=== PATIENT | female | born 1935 | race Caucasian/White ===

== ENCOUNTER 2017-12-16 12:15 | Emergency (ER) | payer MEDICAID ==
[2017-12-16] MEDS: BELLADONNA/PHENOBARBITAL TAB PO (15:31)
[2017-12-16] MEDS: ONDANSETRON 4 MG INJ IV (15:31)
[2017-12-16] MEDS: SOD CHLORIDE 0.9% 500 ML IV (15:31)
[2017-12-16] MEDS: LIDOCAINE/MYLANTA 40 ML BTL PO (15:31)
[2017-12-16 15:49] LABS: ADD MAN DIFF? NO
[2017-12-16 15:51] LABS: WHITE BLOOD COUNT 7.6 10^3/ul (4.8-10.8)
[2017-12-16 15:51] LABS: BASOPHIL # 0.1 10^3/ul (0.0-0.1); BASOPHILS % 0.7 % (0.0-2.0); EOSINOPHILS % 0.1 % (0.0-7.0); HEMATOCRIT 43.4 % (37.0-47.0); HEMOGLOBIN 14.6 g/dl (12.0-16.0); LYMPHOCYTES # 1.4 10^3/ul (0.8-2.9); MEAN CORPUSCULAR HEMOGLOBIN 30.7 pg (29.0-33.0); MEAN CORPUSCULAR HGB CONC 33.6 g/dl (32.0-37.0); MEAN CORPUSCULAR VOLUME 91.4 fl (82.0-101.0); MEAN PLATELET VOLUME 9.6 fl (7.4-10.4); MONOCYTE # 0.2 10^3/ul (0.3-0.9); MONOCYTES % 2.5 % (0.0-11.0); NEUTROPHIL # 5.9 10^3/ul (1.6-7.5); NEUTROPHILS % 78.4 % (39.0-77.0); PLATELET COUNT 269 10^3/UL (140-415); RED BLOOD COUNT 4.75 10^6/ul (4.20-5.40); RED CELL DISTRIBUTION WIDTH 13.8 % (11.5-14.5)
[2017-12-16 16:11] LABS: ALANINE AMINOTRANSFERASE 35 IU/L (13-69); ALBUMIN 4.8 g/dl (3.3-4.9); ALBUMIN/GLOBULIN RATIO 1.06; ALKALINE PHOSPHATASE 121 IU/L (42-121); ANION GAP 17 (8-16); ASPARTATE AMINO TRANSFERASE 36 IU/L (15-46); BILIRUBIN,INDIRECT 0.4 mg/dl (0-1.1); BILIRUBIN,TOTAL 0.4 mg/dl (0.2-1.3); BLOOD UREA NITROGEN 13 mg/dl (7-20); CALCIUM 9.6 mg/dl (8.4-10.2); CARBON DIOXIDE 26 mmol/L (21-31); CHLORIDE 103 mmol/L (97-110); CREATININE 0.71 mg/dl (0.44-1.00); GLUCOSE 107 mg/dl (70-220); LIPASE 77 U/L (23-300); POTASSIUM 4.2 mmol/L (3.5-5.1); SODIUM 142 mmol/L (135-144); TOTAL PROTEIN 9.3 g/dl (6.1-8.1)
[2017-12-16 16:24] LABS: TROPONIN-I < 0.012 ng/ml (0.00-0.12)
[2017-12-16 16:37] LABS: ADD UMIC YES; UR ASCORBIC ACID NEGATIVE (NEGATIVE); UR BILIRUBIN (Dip) NEGATIVE (NEGATIVE); UR BLOOD (Dip) NEGATIVE (NEGATIVE); UR CLARITY CLEAR (CLEAR); UR COLOR YELLOW (YELLOW); UR GLUCOSE (Dip) NEGATIVE (NEGATIVE); UR KETONES (Dip) TRACE mg/dL (NEGATIVE); UR LEUKOCYTE ESTERASE (Dip) 2+ Leu/ul (NEGATIVE); UR NITRITE (Dip) NEGATIVE (NEGATIVE); UR RBC 2 /HPF (0-5); UR SPECIFIC GRAVITY (Dip) 1.012 (1.003-1.030); UR SQUAMOUS EPITHELIAL CELL FEW /HPF (FEW); UR TOTAL PROTEIN (Dip) NEGATIVE (NEGATIVE); UR UROBILINOGEN (Dip) NEGATIVE (NEGATIVE); UR WBC 3 /HPF (0-5)
[2017-12-16] MEDS: CEPHALEXIN 500 MG CAP PO (17:08)
== END 2017-12-16 15:20 | disposition home or self-care (01) ==
LOC: E/R 12:15
DX: N30.00 Acute cystitis without hematuria (principal)
CPT/HCPCS: 36415; 71045; 80053; 81001; 83690; 84484; 85025; 96374; 99285-25

== ENCOUNTER 2017-12-27 09:33 | Emergency (ER) | payer MEDICAID ==
[2017-12-27 20:54] LABS: ADD MAN DIFF? NO
[2017-12-27 20:59] LABS: BASOPHIL # 0.1 10^3/ul (0.0-0.1); BASOPHILS % 0.8 % (0.0-2.0); EOSINOPHILS # 0.2 10^3/ul (0.0-0.5); EOSINOPHILS % 3.2 % (0.0-7.0); HEMATOCRIT 40.9 % (37.0-47.0); HEMOGLOBIN 13.6 g/dl (12.0-16.0); LYMPHOCYTES # 2.5 10^3/ul (0.8-2.9); LYMPHOCYTES % 37.1 % (15.0-51.0); MEAN CORPUSCULAR HEMOGLOBIN 30.2 pg (29.0-33.0); MEAN CORPUSCULAR HGB CONC 33.3 g/dl (32.0-37.0); MEAN CORPUSCULAR VOLUME 90.9 fl (82.0-101.0); MEAN PLATELET VOLUME 9.4 fl (7.4-10.4); MONOCYTE # 0.6 10^3/ul (0.3-0.9); NEUTROPHIL # 3.3 10^3/ul (1.6-7.5); NEUTROPHILS % 49.6 % (39.0-77.0); PLATELET COUNT 279 10^3/UL (140-415); RED CELL DISTRIBUTION WIDTH 13.8 % (11.5-14.5)
[2017-12-27 20:59] LABS: WHITE BLOOD COUNT 6.6 10^3/ul (4.8-10.8)
[2017-12-27 21:11] LABS: ADD UMIC YES; UR ASCORBIC ACID NEGATIVE (NEGATIVE); UR BILIRUBIN (Dip) NEGATIVE (NEGATIVE); UR BLOOD (Dip) 1+ mg/dL (NEGATIVE); UR CLARITY CLEAR (CLEAR); UR COLOR YELLOW (YELLOW); UR GLUCOSE (Dip) NEGATIVE (NEGATIVE); UR KETONES (Dip) NEGATIVE (NEGATIVE); UR LEUKOCYTE ESTERASE (Dip) 2+ Leu/ul (NEGATIVE); UR NITRITE (Dip) NEGATIVE (NEGATIVE); UR RBC 2 /HPF (0-5); UR SPECIFIC GRAVITY (Dip) 1.008 (1.003-1.030); UR SQUAMOUS EPITHELIAL CELL FEW /HPF (FEW); UR TOTAL PROTEIN (Dip) NEGATIVE (NEGATIVE); UR UROBILINOGEN (Dip) NEGATIVE (NEGATIVE); UR WBC 4 /HPF (0-5)
[2017-12-27 21:20] LABS: INR 0.99; PROTIME 13.2 Sec (11.9-14.9)
[2017-12-27 21:23] LABS: ANION GAP 15 (8-16); BLOOD UREA NITROGEN 13 mg/dl (7-20); CALCIUM 9.5 mg/dl (8.4-10.2); CARBON DIOXIDE 26 mmol/L (21-31); CHLORIDE 104 mmol/L (97-110); CREATININE 0.67 mg/dl (0.44-1.00); GLUCOSE 103 mg/dl (70-220); POTASSIUM 3.8 mmol/L (3.5-5.1); SODIUM 141 mmol/L (135-144)
[2017-12-27 21:34] LABS: B-TYPE NATRIURETIC PEPTIDE 228 PG/ML (0-450); TROPONIN-I 0.012 ng/ml (0.00-0.12)
[2017-12-27] MEDS: SOD CHLORIDE 0.9% 100 ML (22:14)
[2017-12-27] MEDS: IOHEXOL 100 ML (22:15)
== END 2017-12-27 23:24 | disposition home or self-care (01) ==
LOC: E/R 09:33
DX: J20.9 Acute bronchitis, unspecified (principal); R06.02 Shortness of breath; Z87.891 Personal history of nicotine dependence
CPT/HCPCS: 36415; 71275; 80048; 81001; 83880; 84484; 85025; 85610; 85730; 99284-25

== ENCOUNTER 2018-01-05 14:52 | Inpatient (IN) | payer MEDICAID ==
[2018-01-05] MEDS: SODIUM CHLORIDE 0.9% 1L BAG IV* (15:47)
[2018-01-05] MEDS: PIPER-TAZO 3.375 GM IV (PMX) 100 ML IVPB (15:47)
[2018-01-05 16:04] LABS: ADD MAN DIFF? NO
[2018-01-05 16:08] LABS: BASOPHILS % 0.2 % (0.0-2.0); EOSINOPHILS # 0.1 10^3/ul (0.0-0.5); EOSINOPHILS % 0.6 % (0.0-7.0); HEMATOCRIT 42.9 % (37.0-47.0); HEMOGLOBIN 14.1 g/dl (12.0-16.0); LYMPHOCYTES # 2.5 10^3/ul (0.8-2.9); LYMPHOCYTES % 15.3 % (15.0-51.0); MEAN CORPUSCULAR HEMOGLOBIN 29.9 pg (29.0-33.0); MEAN CORPUSCULAR HGB CONC 32.9 g/dl (32.0-37.0); MEAN CORPUSCULAR VOLUME 91.1 fl (82.0-101.0); MONOCYTE # 1.2 10^3/ul (0.3-0.9); MONOCYTES % 7.1 % (0.0-11.0); NEUTROPHIL # 12.3 10^3/ul (1.6-7.5); PLATELET COUNT 314 10^3/UL (140-415); RED BLOOD COUNT 4.71 10^6/ul (4.20-5.40); RED CELL DISTRIBUTION WIDTH 14.4 % (11.5-14.5)
[2018-01-05 16:08] LABS: WHITE BLOOD COUNT 16.3 10^3/ul (4.8-10.8)
[2018-01-05 16:29] LABS: PARTIAL THROMBOPLASTIN TIME 28.1 Sec (25.0-35.0)
[2018-01-05 16:29] LABS: LACTIC ACID 1.4 mmol/L (0.5-2.0)
[2018-01-05 16:34] LABS: ALANINE AMINOTRANSFERASE 39 IU/L (13-69); ALBUMIN 4.1 g/dl (3.3-4.9); ALKALINE PHOSPHATASE 109 IU/L (42-121); ANION GAP 14 (8-16); ASPARTATE AMINO TRANSFERASE 27 IU/L (15-46); BILIRUBIN,INDIRECT 0.1 mg/dl (0-1.1); BILIRUBIN,TOTAL 0.1 mg/dl (0.2-1.3); BLOOD UREA NITROGEN 31 mg/dl (7-20); CALCIUM 8.8 mg/dl (8.4-10.2); CARBON DIOXIDE 27 mmol/L (21-31); CHLORIDE 101 mmol/L (97-110); CREATININE 0.78 mg/dl (0.44-1.00); GLUCOSE 123 mg/dl (70-220); POTASSIUM 3.7 mmol/L (3.5-5.1); SODIUM 138 mmol/L (135-144); TOTAL PROTEIN 7.8 g/dl (6.1-8.1)
[2018-01-05] MEDS: ONDANSETRON 4 MG INJ IV ×3 (16:49→19:58)
[2018-01-05] MEDS: morphine 4 MG/ML VIAL IV ×2 (16:49→17:33)
[2018-01-05 16:50] LABS: TROPONIN-I < 0.012 ng/ml (0.00-0.12)
[2018-01-05 16:57] LABS: INR 1.03; PROTIME 13.6 Sec (11.9-14.9); PT RATIO 1.1
[2018-01-05] MEDS ORDERED: NACL 0.9% 3 ML SYG IV (18:30)
[2018-01-05] MEDS: HYDROmorphONE 1 MG/ML SYG IV (19:59)
[2018-01-05] MEDS: DEXTROSE 5%-0.45% NACL 1,000 ML IV (19:59)
[2018-01-05 20:09] LABS: ADD UMIC YES; UR ASCORBIC ACID NEGATIVE (NEGATIVE); UR BACTERIA FEW /HPF (NONE SEEN); UR BILIRUBIN (Dip) NEGATIVE (NEGATIVE); UR BLOOD (Dip) NEGATIVE (NEGATIVE); UR CLARITY CLEAR (CLEAR); UR COLOR YELLOW (YELLOW); UR GLUCOSE (Dip) NEGATIVE (NEGATIVE); UR KETONES (Dip) NEGATIVE (NEGATIVE); UR LEUKOCYTE ESTERASE (Dip) 2+ Leu/ul (NEGATIVE); UR NITRITE (Dip) NEGATIVE (NEGATIVE); UR RBC 0 /HPF (0-5); UR SPECIFIC GRAVITY (Dip) 1.015 (1.003-1.030); UR SQUAMOUS EPITHELIAL CELL FEW /HPF (FEW); UR TOTAL PROTEIN (Dip) NEGATIVE (NEGATIVE); UR UROBILINOGEN (Dip) NEGATIVE (NEGATIVE); UR WBC 3 /HPF (0-5)
[2018-01-05 22:33] LABS: LACTIC ACID 1.3 mmol/L (0.5-2.0)
[2018-01-05 23:46] LABS: LACTIC ACID 1.6 mmol/L (0.5-2.0)
[2018-01-06 06:04] LABS: ADD MAN DIFF? NO
[2018-01-06 06:16] LABS: WHITE BLOOD COUNT 9.5 10^3/ul (4.8-10.8)
[2018-01-06 06:16] LABS: BASOPHILS % 0.2 % (0.0-2.0); EOSINOPHILS % 0.2 % (0.0-7.0); HEMATOCRIT 37.3 % (37.0-47.0); HEMOGLOBIN 12.3 g/dl (12.0-16.0); LYMPHOCYTES # 2.1 10^3/ul (0.8-2.9); LYMPHOCYTES % 22.1 % (15.0-51.0); MEAN CORPUSCULAR HEMOGLOBIN 30.1 pg (29.0-33.0); MEAN CORPUSCULAR VOLUME 91.4 fl (82.0-101.0); MEAN PLATELET VOLUME 9.7 fl (7.4-10.4); MONOCYTES % 10.6 % (0.0-11.0); NEUTROPHIL # 6.2 10^3/ul (1.6-7.5); NEUTROPHILS % 65.6 % (39.0-77.0); PLATELET COUNT 288 10^3/UL (140-415); RED BLOOD COUNT 4.08 10^6/ul (4.20-5.40); RED CELL DISTRIBUTION WIDTH 14.4 % (11.5-14.5)
[2018-01-06] MEDS: DEXTROSE 5%-0.45% NACL 1,000 ML IV ×2 (07:14→20:44)
[2018-01-06 07:24] LABS: ALANINE AMINOTRANSFERASE 31 IU/L (13-69); ALBUMIN 3.4 g/dl (3.3-4.9); ALBUMIN/GLOBULIN RATIO 1.03; ALKALINE PHOSPHATASE 70 IU/L (42-121); ANION GAP 10 (8-16); ASPARTATE AMINO TRANSFERASE 28 IU/L (15-46); BILIRUBIN,INDIRECT 0.4 mg/dl (0-1.1); BILIRUBIN,TOTAL 0.4 mg/dl (0.2-1.3); BLOOD UREA NITROGEN 21 mg/dl (7-20); CALCIUM 8.4 mg/dl (8.4-10.2); CARBON DIOXIDE 26 mmol/L (21-31); CHLORIDE 103 mmol/L (97-110); CREATININE 0.64 mg/dl (0.44-1.00); GLUCOSE 145 mg/dl (70-220); POTASSIUM 4.5 mmol/L (3.5-5.1); SODIUM 134 mmol/L (135-144); TOTAL PROTEIN 6.7 g/dl (6.1-8.1)
[2018-01-06] MEDS: morphine 2 MG INJ IV (19:05)
[2018-01-06] MEDS: ONDANSETRON 4 MG INJ IV (19:05)
[2018-01-06] MEDS ORDERED: SOD CHLORIDE 0.9% 1,000 ML IV (20:30)
[2018-01-07 05:38] LABS: ADD MAN DIFF? NO
[2018-01-07 05:47] LABS: BASOPHILS % 0.4 % (0.0-2.0); EOSINOPHILS # 0.3 10^3/ul (0.0-0.5); EOSINOPHILS % 3.4 % (0.0-7.0); HEMATOCRIT 38.5 % (37.0-47.0); HEMOGLOBIN 12.7 g/dl (12.0-16.0); LYMPHOCYTES # 2.4 10^3/ul (0.8-2.9); LYMPHOCYTES % 30.6 % (15.0-51.0); MEAN CORPUSCULAR HEMOGLOBIN 30.2 pg (29.0-33.0); MEAN CORPUSCULAR VOLUME 91.7 fl (82.0-101.0); MONOCYTE # 0.7 10^3/ul (0.3-0.9); MONOCYTES % 9.4 % (0.0-11.0); NEUTROPHIL # 4.3 10^3/ul (1.6-7.5); NEUTROPHILS % 55.3 % (39.0-77.0); PLATELET COUNT 244 10^3/UL (140-415); RED CELL DISTRIBUTION WIDTH 14.3 % (11.5-14.5)
[2018-01-07 05:47] LABS: WHITE BLOOD COUNT 7.8 10^3/ul (4.8-10.8)
[2018-01-07 06:25] LABS: ANION GAP 8 (8-16); BLOOD UREA NITROGEN 13 mg/dl (7-20); CALCIUM 8.4 mg/dl (8.4-10.2); CARBON DIOXIDE 24 mmol/L (21-31); CHLORIDE 108 mmol/L (97-110); CREATININE 0.67 mg/dl (0.44-1.00); GLUCOSE 113 mg/dl (70-220); MAGNESIUM 2.2 mg/dl (1.7-2.5); PHOSPHORUS 2.8 mg/dl (2.5-4.9); POTASSIUM 3.9 mmol/L (3.5-5.1); SODIUM 136 mmol/L (135-144)
[2018-01-09] MEDS: SOD CHLORIDE 0.9% 100 ML (11:51)
[2018-01-09] MEDS: IODIXANOL LOCM 100 ML BTL (11:51)
[2018-01-09] MEDS: ACETAMINOPHEN 325 MG TAB PO (14:05)
[2018-01-09 19:43] LABS: ADD MAN DIFF? NO
[2018-01-09 19:44] LABS: BASOPHILS % 0.3 % (0.0-2.0); EOSINOPHILS % 0.2 % (0.0-7.0); HEMATOCRIT 37.7 % (37.0-47.0); HEMOGLOBIN 12.8 g/dl (12.0-16.0); LYMPHOCYTES # 2.7 10^3/ul (0.8-2.9); LYMPHOCYTES % 21.3 % (15.0-51.0); MEAN CORPUSCULAR HEMOGLOBIN 30.2 pg (29.0-33.0); MEAN CORPUSCULAR VOLUME 88.9 fl (82.0-101.0); MEAN PLATELET VOLUME 9.3 fl (7.4-10.4); MONOCYTE # 1.1 10^3/ul (0.3-0.9); MONOCYTES % 8.8 % (0.0-11.0); NEUTROPHIL # 8.9 10^3/ul (1.6-7.5); PLATELET COUNT 246 10^3/UL (140-415); RED BLOOD COUNT 4.24 10^6/ul (4.20-5.40); RED CELL DISTRIBUTION WIDTH 13.8 % (11.5-14.5)
[2018-01-09 19:44] LABS: WHITE BLOOD COUNT 12.9 10^3/ul (4.8-10.8)
[2018-01-09 20:16] LABS: LACTIC ACID 1.8 mmol/L (0.5-2.0)
[2018-01-09 20:16] LABS: ANION GAP 12 (8-16); BLOOD UREA NITROGEN 14 mg/dl (7-20); CALCIUM 8.8 mg/dl (8.4-10.2); CARBON DIOXIDE 25 mmol/L (21-31); CHLORIDE 97 mmol/L (97-110); CREATININE 0.95 mg/dl (0.44-1.00); GLUCOSE 159 mg/dl (70-220); POTASSIUM 4.4 mmol/L (3.5-5.1); SODIUM 130 mmol/L (135-144)
[2018-01-09] MEDS: LEVETIRACETAM 500 MG (PMX) 100 ML IVPB (20:56)
[2018-01-10 08:27] LABS: ADD MAN DIFF? NO
[2018-01-10 08:37] LABS: BASOPHILS % 0.3 % (0.0-2.0); EOSINOPHILS % 0.3 % (0.0-7.0); HEMATOCRIT 36.1 % (37.0-47.0); HEMOGLOBIN 12.3 g/dl (12.0-16.0); LYMPHOCYTES # 2.4 10^3/ul (0.8-2.9); LYMPHOCYTES % 20.4 % (15.0-51.0); MEAN CORPUSCULAR HEMOGLOBIN 30.2 pg (29.0-33.0); MEAN CORPUSCULAR HGB CONC 34.1 g/dl (32.0-37.0); MEAN CORPUSCULAR VOLUME 88.7 fl (82.0-101.0); MEAN PLATELET VOLUME 9.6 fl (7.4-10.4); MONOCYTE # 1.1 10^3/ul (0.3-0.9); MONOCYTES % 9.4 % (0.0-11.0); NEUTROPHIL # 8.2 10^3/ul (1.6-7.5); NEUTROPHILS % 69.1 % (39.0-77.0); PLATELET COUNT 226 10^3/UL (140-415); RED BLOOD COUNT 4.07 10^6/ul (4.20-5.40); RED CELL DISTRIBUTION WIDTH 14.1 % (11.5-14.5)
[2018-01-10 08:37] LABS: WHITE BLOOD COUNT 11.9 10^3/ul (4.8-10.8)
[2018-01-10 08:53] LABS: ANION GAP 14 (8-16); BLOOD UREA NITROGEN 16 mg/dl (7-20); CARBON DIOXIDE 22 mmol/L (21-31); CHLORIDE 99 mmol/L (97-110); CREATININE 0.79 mg/dl (0.44-1.00); GLUCOSE 116 mg/dl (70-220); MAGNESIUM 2.2 mg/dl (1.7-2.5); PHOSPHORUS 3.5 mg/dl (2.5-4.9); POTASSIUM 4.4 mmol/L (3.5-5.1); SODIUM 131 mmol/L (135-144)
[2018-01-10] MEDS: ACETAMINOPHEN 325 MG TAB PO (09:58)
[2018-01-10] MEDS: LEVETIRACETAM 500 MG (PMX) 100 ML IVPB ×2 (15:29→20:05)
[2018-01-11] MEDS: BISACODYL 10 MG SUPP PR (01:00)
[2018-01-11] MEDS: DEXTROSE 5%-0.45% NACL 1,000 ML IV ×2 (01:00→13:03)
[2018-01-11] MEDS: ACETAMINOPHEN 650 MG SUPP PR (01:00)
[2018-01-11 09:20] LABS: ADD MAN DIFF? NO
[2018-01-11 09:25] LABS: BASOPHIL # 0.1 10^3/ul (0.0-0.1); BASOPHILS % 0.5 % (0.0-2.0); EOSINOPHILS # 0.1 10^3/ul (0.0-0.5); EOSINOPHILS % 0.5 % (0.0-7.0); HEMATOCRIT 35.6 % (37.0-47.0); HEMOGLOBIN 11.9 g/dl (12.0-16.0); LYMPHOCYTES # 2.5 10^3/ul (0.8-2.9); LYMPHOCYTES % 22.7 % (15.0-51.0); MEAN CORPUSCULAR HEMOGLOBIN 30.5 pg (29.0-33.0); MEAN CORPUSCULAR HGB CONC 33.4 g/dl (32.0-37.0); MEAN CORPUSCULAR VOLUME 91.3 fl (82.0-101.0); MEAN PLATELET VOLUME 9.8 fl (7.4-10.4); MONOCYTE # 1.2 10^3/ul (0.3-0.9); MONOCYTES % 10.8 % (0.0-11.0); NEUTROPHIL # 7.1 10^3/ul (1.6-7.5); PLATELET COUNT 218 10^3/UL (140-415); RED CELL DISTRIBUTION WIDTH 13.9 % (11.5-14.5)
[2018-01-11 09:53] LABS: ANION GAP 14 (8-16); BLOOD UREA NITROGEN 16 mg/dl (7-20); CALCIUM 8.6 mg/dl (8.4-10.2); CARBON DIOXIDE 20 mmol/L (21-31); CHLORIDE 100 mmol/L (97-110); GLUCOSE 117 mg/dl (70-220); MAGNESIUM 2.2 mg/dl (1.7-2.5); POTASSIUM 4.5 mmol/L (3.5-5.1); SODIUM 129 mmol/L (135-144)
[2018-01-11] MEDS: ACETAMINOPHEN 325 MG TAB PO ×3 (12:19→22:04)
[2018-01-11] MEDS: LEVETIRACETAM 500 MG (PMX) 100 ML IVPB ×3 (14:44→22:04)
[2018-01-11] MEDS: ATORVASTATIN 40 MG TAB PO (22:04)
[2018-01-12] MEDS: ONDANSETRON 4 MG INJ IV (02:07)
[2018-01-12] MEDS: DEXTROSE 5%-0.45% NACL 1,000 ML IV ×3 (04:59→17:30)
[2018-01-12] MEDS: ACETAMINOPHEN 325 MG TAB PO ×3 (06:46→15:42)
[2018-01-12 08:07] LABS: ADD MAN DIFF? NO
[2018-01-12 08:10] LABS: BASOPHILS % 0.4 % (0.0-2.0); EOSINOPHILS # 0.1 10^3/ul (0.0-0.5); HEMATOCRIT 34.4 % (37.0-47.0); HEMOGLOBIN 11.7 g/dl (12.0-16.0); LYMPHOCYTES # 1.2 10^3/ul (0.8-2.9); LYMPHOCYTES % 12.1 % (15.0-51.0); MEAN CORPUSCULAR HEMOGLOBIN 30.7 pg (29.0-33.0); MEAN CORPUSCULAR VOLUME 90.3 fl (82.0-101.0); MEAN PLATELET VOLUME 9.4 fl (7.4-10.4); MONOCYTE # 0.8 10^3/ul (0.3-0.9); MONOCYTES % 8.3 % (0.0-11.0); NEUTROPHIL # 7.7 10^3/ul (1.6-7.5); NEUTROPHILS % 77.7 % (39.0-77.0); PLATELET COUNT 245 10^3/UL (140-415); RED BLOOD COUNT 3.81 10^6/ul (4.20-5.40); RED CELL DISTRIBUTION WIDTH 13.6 % (11.5-14.5)
[2018-01-12 08:10] LABS: WHITE BLOOD COUNT 9.9 10^3/ul (4.8-10.8)
[2018-01-12 08:35] LABS: ANION GAP 12 (8-16); BLOOD UREA NITROGEN 11 mg/dl (7-20); CALCIUM 8.7 mg/dl (8.4-10.2); CARBON DIOXIDE 22 mmol/L (21-31); CHLORIDE 103 mmol/L (97-110); GLUCOSE 146 mg/dl (70-220); POTASSIUM 4.2 mmol/L (3.5-5.1); SODIUM 133 mmol/L (135-144)
[2018-01-12] MEDS: LEVETIRACETAM 500 MG (PMX) 100 ML IVPB ×2 (09:11→20:30)
[2018-01-12] MEDS: ATORVASTATIN 40 MG TAB PO (20:31)
[2018-01-12] MEDS: ACETAMINOPHEN 650 MG SUPP PR (23:14)
[2018-01-13] MEDS: ACETAMINOPHEN 650 MG SUPP PR ×3 (07:00→21:32)
[2018-01-13] MEDS: DEXTROSE 5%-0.45% NACL 1,000 ML IV ×2 (07:00→19:54)
[2018-01-13] MEDS: LEVETIRACETAM 500 MG (PMX) 100 ML IVPB ×2 (08:58→20:04)
[2018-01-13 09:10] LABS: ANION GAP 13 (8-16); BLOOD UREA NITROGEN 9 mg/dl (7-20); CALCIUM 8.9 mg/dl (8.4-10.2); CARBON DIOXIDE 21 mmol/L (21-31); CHLORIDE 108 mmol/L (97-110); CREATININE 0.71 mg/dl (0.44-1.00); GLUCOSE 127 mg/dl (70-220); POTASSIUM 4.3 mmol/L (3.5-5.1); SODIUM 138 mmol/L (135-144)
[2018-01-13] MEDS: ATORVASTATIN 40 MG TAB PO (20:04)
[2018-01-13] MEDS: ONDANSETRON 4 MG INJ IV (23:49)
[2018-01-14] MEDS: ACETAMINOPHEN 650 MG SUPP PR ×2 (05:04→08:04)
[2018-01-14] MEDS: LEVETIRACETAM 500 MG (PMX) 100 ML IVPB ×2 (08:04→20:26)
[2018-01-14] MEDS: DEXTROSE 5%-0.45% NACL 1,000 ML IV ×2 (08:17→20:27)
[2018-01-14] MEDS: morphine 2 MG INJ IV ×2 (11:42→15:08)
[2018-01-14] MEDS: ONDANSETRON 4 MG INJ IV (18:24)
[2018-01-14] MEDS: ATORVASTATIN 40 MG TAB PO (20:27)
[2018-01-15] MEDS: ACETAMINOPHEN 650 MG SUPP PR (02:18)
[2018-01-15] MEDS: LEVETIRACETAM 500 MG (PMX) 100 ML IVPB ×2 (08:20→20:42)
[2018-01-15] MEDS: morphine 2 MG INJ IV ×3 (10:00→23:06)
[2018-01-15] MEDS: DEXTROSE 5%-0.45% NACL 1,000 ML IV ×3 (10:00→23:10)
[2018-01-15] MEDS: BISACODYL 10 MG SUPP PR (17:54)
[2018-01-15] MEDS: ATORVASTATIN 40 MG TAB PO (20:41)
[2018-01-16] MEDS: LEVETIRACETAM 500 MG (PMX) 100 ML IVPB ×2 (08:30→20:25)
[2018-01-16] MEDS: morphine 2 MG INJ IV ×2 (08:59→20:25)
[2018-01-16] MEDS: DEXTROSE 5%-0.45% NACL 1,000 ML IV (13:08)
[2018-01-16] MEDS: ATORVASTATIN 40 MG TAB PO (21:00)
[2018-01-17] MEDS: DEXTROSE 5%-0.45% NACL 1,000 ML IV ×2 (03:05→15:42)
[2018-01-17] MEDS: morphine 2 MG INJ IV ×4 (03:05→19:47)
[2018-01-17] MEDS: ONDANSETRON 4 MG INJ IV (03:12)
[2018-01-17] MEDS: LEVETIRACETAM 500 MG (PMX) 100 ML IVPB ×2 (08:17→20:30)
[2018-01-17] MEDS: ATORVASTATIN 40 MG TAB PO (21:00)
[2018-01-18] MEDS: morphine 2 MG INJ IV ×5 (02:36→17:54)
[2018-01-18] MEDS: DEXTROSE 5%-0.45% NACL 1,000 ML IV ×2 (06:04→17:56)
[2018-01-18 08:49] LABS: ADD MAN DIFF? NO
[2018-01-18 08:52] LABS: BASOPHILS % 0.5 % (0.0-2.0); EOSINOPHILS # 0.2 10^3/ul (0.0-0.5); EOSINOPHILS % 3.6 % (0.0-7.0); HEMATOCRIT 32.3 % (37.0-47.0); HEMOGLOBIN 10.7 g/dl (12.0-16.0); LYMPHOCYTES # 1.2 10^3/ul (0.8-2.9); LYMPHOCYTES % 21.9 % (15.0-51.0); MEAN CORPUSCULAR HEMOGLOBIN 30.3 pg (29.0-33.0); MEAN CORPUSCULAR HGB CONC 33.1 g/dl (32.0-37.0); MEAN CORPUSCULAR VOLUME 91.5 fl (82.0-101.0); MEAN PLATELET VOLUME 9.1 fl (7.4-10.4); MONOCYTE # 0.5 10^3/ul (0.3-0.9); MONOCYTES % 8.4 % (0.0-11.0); NEUTROPHIL # 3.6 10^3/ul (1.6-7.5); NEUTROPHILS % 65.4 % (39.0-77.0); PLATELET COUNT 287 10^3/UL (140-415); RED BLOOD COUNT 3.53 10^6/ul (4.20-5.40); RED CELL DISTRIBUTION WIDTH 13.2 % (11.5-14.5)
[2018-01-18 08:52] LABS: WHITE BLOOD COUNT 5.5 10^3/ul (4.8-10.8)
[2018-01-18] MEDS: LEVETIRACETAM 500 MG (PMX) 100 ML IVPB ×2 (09:06→20:47)
[2018-01-18 09:35] LABS: ANION GAP 9 (8-16); BLOOD UREA NITROGEN 11 mg/dl (7-20); CARBON DIOXIDE 33 mmol/L (21-31); CHLORIDE 102 mmol/L (97-110); CREATININE 0.61 mg/dl (0.44-1.00); GLUCOSE 127 mg/dl (70-220); POTASSIUM 3.7 mmol/L (3.5-5.1); SODIUM 140 mmol/L (135-144)
[2018-01-18] MEDS: ACETAMINOPHEN 650 MG SUPP PR (14:15)
[2018-01-18] MEDS: METHYLPREDNISOLONE 40 MG INJ IV (17:53)
[2018-01-18] MEDS: ATORVASTATIN 40 MG TAB PO (20:51)
[2018-01-19] MEDS: METHYLPREDNISOLONE 40 MG INJ IV ×3 (00:24→13:13)
[2018-01-19] MEDS: morphine 2 MG INJ IV ×4 (06:19→16:52)
[2018-01-19] MEDS: DEXTROSE 5%-0.45% NACL 1,000 ML IV ×2 (09:52→12:32)
[2018-01-19] MEDS: LEVETIRACETAM 500 MG (PMX) 100 ML IVPB ×2 (09:52→20:26)
[2018-01-19] MEDS: ONDANSETRON 4 MG INJ IV (10:22)
[2018-01-19] MEDS: ACETAMINOPHEN 650 MG SUPP PR (13:14)
[2018-01-19] MEDS: ATORVASTATIN 40 MG TAB PO (20:26)
[2018-01-20] MEDS: morphine 2 MG INJ IV ×4 (06:02→16:56)
[2018-01-20] MEDS: LEVETIRACETAM 500 MG (PMX) 100 ML IVPB ×2 (08:58→21:00)
[2018-01-20] MEDS: DEXTROSE 5%-0.45% NACL 1,000 ML IV (12:02)
[2018-01-20] MEDS ORDERED: DEXAMETHASONE 4 MG TAB PO (20:00)
[2018-01-20] MEDS: DEXAMETHASONE 4 MG TAB PO (20:00)
[2018-01-20] MEDS: ATORVASTATIN 40 MG TAB PO (21:00)
[2018-01-20] MEDS ORDERED: LEVETIRACETAM 500 MG TAB PO (21:00)
[2018-01-20] MEDS: ACETAMINOPHEN 650 MG SUPP PR (21:57)
[2018-01-21] MEDS: morphine 2 MG INJ IV (04:24)
[2018-01-21] MEDS: DEXAMETHASONE 4 MG TAB PO (06:00)
[2018-01-21 07:46] LABS: ANION GAP 14 (8-16); BLOOD UREA NITROGEN 24 mg/dl (7-20); CALCIUM 9.3 mg/dl (8.4-10.2); CARBON DIOXIDE 31 mmol/L (21-31); CHLORIDE 105 mmol/L (97-110); CREATININE 0.61 mg/dl (0.44-1.00); GLUCOSE 107 mg/dl (70-220); POTASSIUM 3.8 mmol/L (3.5-5.1); SODIUM 146 mmol/L (135-144)
[2018-01-21] MEDS: LEVETIRACETAM 500 MG (PMX) 100 ML IVPB ×2 (08:56→22:43)
[2018-01-21] MEDS: ACETAMINOPHEN 650 MG SUPP PR ×2 (12:41→19:48)
[2018-01-21] MEDS: DEXAMETHASONE 10 MG/ML 1 ML INJ IV (16:48)
[2018-01-21] MEDS: ATORVASTATIN 40 MG TAB PO (21:00)
[2018-01-21] MEDS ORDERED: LABETALOL HCL 20MG INJ IV (22:00)
[2018-01-21] MEDS: DEXTROSE 5%-0.45% NACL 1,000 ML IV (22:39)
[2018-01-21] MEDS: CLONIDINE 0.1 MG/24 HR PATCH TRANSDERM (23:47)
[2018-01-21] MEDS: DEXAMETHASONE 4 MG/ML 1 ML INJ IV (23:48)
[2018-01-22] MEDS: DEXAMETHASONE 4 MG/ML 1 ML INJ IV ×3 (07:01→23:14)
[2018-01-22] MEDS: LEVETIRACETAM 500 MG (PMX) 100 ML IVPB ×2 (09:21→21:22)
[2018-01-22] MEDS: DEXTROSE 5%-0.45% NACL 1,000 ML IV (15:28)
[2018-01-22] MEDS: ACETAMINOPHEN 650 MG SUPP PR (18:39)
[2018-01-22] MEDS: ATORVASTATIN 40 MG TAB PO (21:00)
[2018-01-23] MEDS: BISACODYL 10 MG SUPP PR (04:00)
[2018-01-23] MEDS: DEXTROSE 5%-0.45% NACL 1,000 ML IV ×2 (06:57→23:30)
[2018-01-23] MEDS: DEXAMETHASONE 4 MG/ML 1 ML INJ IV ×3 (07:03→23:29)
[2018-01-23] MEDS: LEVETIRACETAM 500 MG (PMX) 100 ML IVPB ×2 (08:43→21:23)
[2018-01-23 11:51] LABS: IRON 71 ug/dl (35-150)
[2018-01-23 11:52] LABS: CHOLESTEROL 139 mg/dl (100-200)
[2018-01-23 11:52] LABS: CHOL/HDL RATIO 2.8 RATIO; HDL CHOLESTEROL 49 mg/dl (33-92); LDL CHOLESTEROL,CALCULATED 74 mg/dl; TRIGLYCERIDES 79 mg/dl (0-149)
[2018-01-23 12:02] LABS: % IRON SATURATION 27 % SAT (22-52); TOTAL IRON BINDING CAPACITY 259 ug/dl (241-421)
[2018-01-23] MEDS: ATORVASTATIN 40 MG TAB PO (21:00)
[2018-01-24 05:53] LABS: ADD MAN DIFF? NO
[2018-01-24 05:58] LABS: HEMATOCRIT 36.4 % (37.0-47.0); HEMOGLOBIN 12.3 g/dl (12.0-16.0); LYMPHOCYTES # 0.9 10^3/ul (0.8-2.9); LYMPHOCYTES % 13.4 % (15.0-51.0); MEAN CORPUSCULAR HEMOGLOBIN 30.8 pg (29.0-33.0); MEAN CORPUSCULAR HGB CONC 33.8 g/dl (32.0-37.0); MEAN CORPUSCULAR VOLUME 91.2 fl (82.0-101.0); MEAN PLATELET VOLUME 9.3 fl (7.4-10.4); MONOCYTE # 0.3 10^3/ul (0.3-0.9); NEUTROPHIL # 5.8 10^3/ul (1.6-7.5); PLATELET COUNT 365 10^3/UL (140-415); RED BLOOD COUNT 3.99 10^6/ul (4.20-5.40); RED CELL DISTRIBUTION WIDTH 13.2 % (11.5-14.5)
[2018-01-24 06:47] LABS: ANION GAP 11 (8-16); BLOOD UREA NITROGEN 19 mg/dl (7-20); CALCIUM 9.3 mg/dl (8.4-10.2); CARBON DIOXIDE 29 mmol/L (21-31); CHLORIDE 108 mmol/L (97-110); CREATININE 0.55 mg/dl (0.44-1.00); GLUCOSE 156 mg/dl (70-220); POTASSIUM 3.8 mmol/L (3.5-5.1); SODIUM 144 mmol/L (135-144)
[2018-01-24] MEDS: LEVETIRACETAM 500 MG (PMX) 100 ML IVPB ×2 (08:48→20:35)
[2018-01-24] MEDS: DEXAMETHASONE 4 MG/ML 1 ML INJ IV (08:48)
[2018-01-24] MEDS: METOPROLOL 25 MG TAB PO ×2 (15:02→20:34)
[2018-01-24] MEDS: hydrALAzine 20 MG INJ IV (15:03)
[2018-01-24] MEDS: DEXTROSE 5%-0.45% NACL 1,000 ML IV (15:13)
[2018-01-24] MEDS ORDERED: METHYLPREDNISOLONE 40 MG INJ (17:30)
[2018-01-24] MEDS: ATORVASTATIN 40 MG TAB PO (20:34)
[2018-01-24] MEDS: DEXAMETHASONE 2 MG TAB PO (20:34)
[2018-01-25] MEDS: BISACODYL 10 MG SUPP PR (06:34)
[2018-01-25] MEDS: LEVETIRACETAM 500 MG (PMX) 100 ML IVPB ×2 (08:47→21:38)
[2018-01-25] MEDS: DEXAMETHASONE 2 MG TAB PO (08:47)
[2018-01-25] MEDS: METOPROLOL 25 MG TAB PO ×2 (08:47→21:00)
[2018-01-25] MEDS: DEXTROSE 5%-0.45% NACL 1,000 ML IV (08:48)
[2018-01-25 11:28] LABS: ADD MAN DIFF? NO
[2018-01-25 11:33] LABS: BASOPHILS % 0.1 % (0.0-2.0); EOSINOPHILS % 0.1 % (0.0-7.0); HEMATOCRIT 41.5 % (37.0-47.0); HEMOGLOBIN 13.8 g/dl (12.0-16.0); LYMPHOCYTES # 1.9 10^3/ul (0.8-2.9); LYMPHOCYTES % 16.6 % (15.0-51.0); MEAN CORPUSCULAR HEMOGLOBIN 30.5 pg (29.0-33.0); MEAN CORPUSCULAR HGB CONC 33.3 g/dl (32.0-37.0); MEAN CORPUSCULAR VOLUME 91.8 fl (82.0-101.0); MEAN PLATELET VOLUME 9.5 fl (7.4-10.4); MONOCYTES % 8.4 % (0.0-11.0); NEUTROPHIL # 8.5 10^3/ul (1.6-7.5); NEUTROPHILS % 74.4 % (39.0-77.0); PLATELET COUNT 400 10^3/UL (140-415); RED BLOOD COUNT 4.52 10^6/ul (4.20-5.40); RED CELL DISTRIBUTION WIDTH 13.4 % (11.5-14.5)
[2018-01-25 11:33] LABS: WHITE BLOOD COUNT 11.4 10^3/ul (4.8-10.8)
[2018-01-25 11:56] LABS: ANION GAP 12 (8-16); BLOOD UREA NITROGEN 16 mg/dl (7-20); CALCIUM 9.1 mg/dl (8.4-10.2); CARBON DIOXIDE 28 mmol/L (21-31); CHLORIDE 106 mmol/L (97-110); CREATININE 0.59 mg/dl (0.44-1.00); GLUCOSE 115 mg/dl (70-220); POTASSIUM 3.2 mmol/L (3.5-5.1); SODIUM 143 mmol/L (135-144)
[2018-01-25] MEDS: POLYETHYLENE GLYCOL 17 GM PACKET PO (17:44)
[2018-01-25] MEDS: BISACODYL (EC) 5 MG TAB PO (17:44)
[2018-01-25] MEDS: ATORVASTATIN 40 MG TAB PO (21:00)
[2018-01-25] MEDS: DEXAMETHASONE 4 MG/ML 1 ML INJ IV (21:38)
[2018-01-26] MEDS: DEXTROSE 5%-0.45% NACL 1,000 ML IV ×2 (01:52→20:54)
[2018-01-26 05:53] LABS: ADD MAN DIFF? NO
[2018-01-26 06:05] LABS: BASOPHILS % 0.1 % (0.0-2.0); HEMOGLOBIN 12.6 g/dl (12.0-16.0); LYMPHOCYTES # 1.2 10^3/ul (0.8-2.9); LYMPHOCYTES % 14.6 % (15.0-51.0); MEAN CORPUSCULAR HEMOGLOBIN 30.1 pg (29.0-33.0); MEAN CORPUSCULAR HGB CONC 33.2 g/dl (32.0-37.0); MEAN CORPUSCULAR VOLUME 90.7 fl (82.0-101.0); MEAN PLATELET VOLUME 9.9 fl (7.4-10.4); MONOCYTE # 0.3 10^3/ul (0.3-0.9); MONOCYTES % 4.3 % (0.0-11.0); NEUTROPHIL # 6.4 10^3/ul (1.6-7.5); NEUTROPHILS % 80.5 % (39.0-77.0); PLATELET COUNT 365 10^3/UL (140-415); RED BLOOD COUNT 4.19 10^6/ul (4.20-5.40); RED CELL DISTRIBUTION WIDTH 13.7 % (11.5-14.5)
[2018-01-26 06:33] LABS: MAGNESIUM 1.9 mg/dl (1.7-2.5)
[2018-01-26 06:36] LABS: ANION GAP 12 (8-16); BLOOD UREA NITROGEN 13 mg/dl (7-20); CALCIUM 8.9 mg/dl (8.4-10.2); CARBON DIOXIDE 28 mmol/L (21-31); CHLORIDE 105 mmol/L (97-110); CREATININE 0.56 mg/dl (0.44-1.00); GLUCOSE 128 mg/dl (70-220); POTASSIUM 3.4 mmol/L (3.5-5.1); SODIUM 142 mmol/L (135-144)
[2018-01-26] MEDS: METOPROLOL 25 MG TAB PO ×2 (09:00→20:58)
[2018-01-26] MEDS: POLYETHYLENE GLYCOL 17 GM PACKET PO (09:00)
[2018-01-26] MEDS: DEXAMETHASONE 4 MG/ML 1 ML INJ IV (09:20)
[2018-01-26] MEDS: LEVETIRACETAM 500 MG (PMX) 100 ML IVPB ×2 (09:20→20:58)
[2018-01-26] MEDS: DEXAMETHASONE 2 MG TAB PO (09:29)
[2018-01-26] MEDS ORDERED: POTASSIUM CHLORIDE 50 ML IVPB (15:00)
[2018-01-26] MEDS ORDERED: POTASSIUM CHLORIDE 20 MEQ /SW 100 ML IVPB (15:30)
[2018-01-26] MEDS ORDERED: POTASSIUM CHLORIDE 20 MEQ in DEXTROSE 5% 100 ML IV (16:30)
[2018-01-26] MEDS ORDERED: PROPOFOL 20 ML (18:25)
[2018-01-26] MEDS ORDERED: CEFAZOLIN 1 GM/50 ML (PMX) 50 ML IVPB ×2 (18:25)
[2018-01-26] MEDS ORDERED: hydrALAzine 20 MG INJ (18:39)
[2018-01-26] MEDS ORDERED: morphine 2 MG INJ IV (19:07)
[2018-01-26] MEDS ORDERED: morphine (1 MG/ML) 10ML SYRINGE IV ×2 (19:11→19:30)
[2018-01-26] MEDS ORDERED: LABETALOL 5 MG IV (19:30)
[2018-01-26] MEDS ORDERED: EPHEDrine SULFATE 50 MG/5 ML SYG IV (19:30)
[2018-01-26] MEDS ORDERED: hydrALAzine 20 MG INJ IV (19:30)
[2018-01-26] MEDS ORDERED: FENTAnyl 50 MCG/ML VIAL IV (19:30)
[2018-01-26] MEDS ORDERED: ONDANSETRON 4 MG INJ IV (19:30)
[2018-01-26] MEDS ORDERED: MEPERIDINE 25 MG INJ IV (19:30)
[2018-01-26] MEDS: MORPHINE 2 MG IV (19:36)
[2018-01-26] MEDS: ONDANSETRON 4 MG INJ IV (20:32)
[2018-01-26] MEDS: POTASSIUM CHLORIDE 20 MEQ in DEXTROSE 5% 100 ML IV (20:58)
[2018-01-26] MEDS: ATORVASTATIN 40 MG TAB PO (20:58)
[2018-01-27] MEDS: morphine 2 MG INJ IV ×3 (01:22→17:12)
[2018-01-27] MEDS: POLYETHYLENE GLYCOL 17 GM PACKET PO ×2 (09:00→09:45)
[2018-01-27] MEDS: METOPROLOL 25 MG TAB PO ×3 (09:00→21:00)
[2018-01-27] MEDS: LEVETIRACETAM 500 MG (PMX) 100 ML IVPB ×2 (09:43→23:01)
[2018-01-27] MEDS: POTASSIUM CHLORIDE 20 MEQ POWDER FOR ORAL SOLN GTB ×3 (09:45→23:01)
[2018-01-27] MEDS: DEXTROSE 5%-0.45% NACL 1,000 ML IV ×2 (11:20→17:13)
[2018-01-27 14:32] LABS: ANION GAP 11 (8-16); BLOOD UREA NITROGEN 12 mg/dl (7-20); CARBON DIOXIDE 28 mmol/L (21-31); CHLORIDE 106 mmol/L (97-110); CREATININE 0.58 mg/dl (0.44-1.00); GLUCOSE 114 mg/dl (70-220); POTASSIUM 3.3 mmol/L (3.5-5.1); SODIUM 142 mmol/L (135-144)
[2018-01-27 22:35] LABS: ADD UMIC YES; UR ASCORBIC ACID NEGATIVE (NEGATIVE); UR BACTERIA FEW /HPF (NONE SEEN); UR BILIRUBIN (Dip) NEGATIVE (NEGATIVE); UR BLOOD (Dip) NEGATIVE (NEGATIVE); UR CLARITY CLEAR (CLEAR); UR COLOR YELLOW (YELLOW); UR GLUCOSE (Dip) NEGATIVE (NEGATIVE); UR KETONES (Dip) NEGATIVE (NEGATIVE); UR LEUKOCYTE ESTERASE (Dip) 1+ Leu/ul (NEGATIVE); UR NITRITE (Dip) NEGATIVE (NEGATIVE); UR NONSQUAMOUS EPITHELIAL CELL 2 /HPF (NONE SEEN); UR RBC 2 /HPF (0-5); UR SPECIFIC GRAVITY (Dip) 1.011 (1.003-1.030); UR SQUAMOUS EPITHELIAL CELL FEW /HPF (FEW); UR TOTAL PROTEIN (Dip) NEGATIVE (NEGATIVE); UR UROBILINOGEN (Dip) 1+ mg/dL (NEGATIVE); UR WBC 11 /HPF (0-5)
[2018-01-27] MEDS: ATORVASTATIN 40 MG TAB PO (23:03)
[2018-01-28] MEDS: DEXTROSE 5%-0.45% NACL 1,000 ML IV ×2 (04:00→20:40)
[2018-01-28] MEDS: morphine 2 MG INJ IV ×5 (05:13→20:50)
[2018-01-28 06:13] LABS: ADD MAN DIFF? NO
[2018-01-28 06:25] LABS: WHITE BLOOD COUNT 7.5 10^3/ul (4.8-10.8)
[2018-01-28 06:25] LABS: BASOPHILS % 0.1 % (0.0-2.0); EOSINOPHILS # 0.1 10^3/ul (0.0-0.5); EOSINOPHILS % 0.8 % (0.0-7.0); HEMATOCRIT 34.2 % (37.0-47.0); HEMOGLOBIN 11.2 g/dl (12.0-16.0); LYMPHOCYTES # 1.9 10^3/ul (0.8-2.9); LYMPHOCYTES % 25.8 % (15.0-51.0); MEAN CORPUSCULAR HEMOGLOBIN 30.4 pg (29.0-33.0); MEAN CORPUSCULAR HGB CONC 32.7 g/dl (32.0-37.0); MEAN CORPUSCULAR VOLUME 92.9 fl (82.0-101.0); MEAN PLATELET VOLUME 10.5 fl (7.4-10.4); MONOCYTE # 0.6 10^3/ul (0.3-0.9); MONOCYTES % 7.8 % (0.0-11.0); NEUTROPHIL # 4.9 10^3/ul (1.6-7.5); PLATELET COUNT 291 10^3/UL (140-415); RED BLOOD COUNT 3.68 10^6/ul (4.20-5.40)
[2018-01-28 06:53] LABS: ANION GAP 10 (8-16); BLOOD UREA NITROGEN 12 mg/dl (7-20); CALCIUM 8.7 mg/dl (8.4-10.2); CARBON DIOXIDE 27 mmol/L (21-31); CHLORIDE 107 mmol/L (97-110); GLUCOSE 137 mg/dl (70-220); POTASSIUM 3.6 mmol/L (3.5-5.1); SODIUM 140 mmol/L (135-144)
[2018-01-28] MEDS: METOPROLOL 25 MG TAB PO ×3 (08:00→20:22)
[2018-01-28] MEDS: LEVETIRACETAM 500 MG (PMX) 100 ML IVPB ×2 (09:56→20:14)
[2018-01-28] MEDS: POLYETHYLENE GLYCOL 17 GM PACKET PO (10:09)
[2018-01-28] MEDS ORDERED: BARIUM SULF 2% 450 ML BTL (BERRY SMOOTHIE) PO (11:30)
[2018-01-28] MEDS: IOHEXOL 14.3 MG(I)/ML (ADULT) BTL PO (13:27)
[2018-01-28] MEDS: ONDANSETRON 4 MG INJ IV ×2 (13:29→20:54)
[2018-01-28] MEDS: ATORVASTATIN 40 MG TAB PO (20:14)
[2018-01-28] MEDS: CLONIDINE 0.1 MG/24 HR PATCH TRANSDERM (22:30)
[2018-01-29] MEDS: morphine 2 MG INJ IV (06:19)
[2018-01-29 06:30] LABS: ADD MAN DIFF? NO
[2018-01-29 06:42] LABS: BASOPHILS % 0.1 % (0.0-2.0); EOSINOPHILS # 0.1 10^3/ul (0.0-0.5); EOSINOPHILS % 1.1 % (0.0-7.0); HEMATOCRIT 32.1 % (37.0-47.0); HEMOGLOBIN 10.4 g/dl (12.0-16.0); LYMPHOCYTES # 1.7 10^3/ul (0.8-2.9); LYMPHOCYTES % 22.2 % (15.0-51.0); MEAN CORPUSCULAR HEMOGLOBIN 30.4 pg (29.0-33.0); MEAN CORPUSCULAR HGB CONC 32.4 g/dl (32.0-37.0); MEAN CORPUSCULAR VOLUME 93.9 fl (82.0-101.0); MEAN PLATELET VOLUME 10.2 fl (7.4-10.4); MONOCYTE # 0.8 10^3/ul (0.3-0.9); MONOCYTES % 10.1 % (0.0-11.0); NEUTROPHILS % 65.8 % (39.0-77.0); PLATELET COUNT 266 10^3/UL (140-415); RED BLOOD COUNT 3.42 10^6/ul (4.20-5.40); RED CELL DISTRIBUTION WIDTH 14.2 % (11.5-14.5)
[2018-01-29 06:42] LABS: WHITE BLOOD COUNT 7.6 10^3/ul (4.8-10.8)
[2018-01-29 07:29] LABS: ANION GAP 8 (8-16); BLOOD UREA NITROGEN 11 mg/dl (7-20); CALCIUM 8.3 mg/dl (8.4-10.2); CARBON DIOXIDE 33 mmol/L (21-31); CHLORIDE 103 mmol/L (97-110); CREATININE 0.61 mg/dl (0.44-1.00); GLUCOSE 113 mg/dl (70-220); POTASSIUM 3.6 mmol/L (3.5-5.1); SODIUM 140 mmol/L (135-144)
[2018-01-29] MEDS: METOPROLOL 25 MG TAB PO ×2 (09:00→21:00)
[2018-01-29] MEDS: LEVETIRACETAM 500 MG (PMX) 100 ML IVPB (10:02)
[2018-01-29] MEDS: POLYETHYLENE GLYCOL 17 GM PACKET PO (10:03)
[2018-01-29] MEDS: DEXTROSE 5%-0.45% NACL 1,000 ML IV (10:06)
[2018-01-29] MEDS: KETOROLAC 15 MG INJ IV ×2 (13:45→18:26)
[2018-01-29] MEDS ORDERED: LEVETIRACETAM (100 MG/ML) 5ML CUP (19:53)
[2018-01-29] MEDS: ATORVASTATIN 40 MG TAB PO (21:08)
[2018-01-29] MEDS: LEVETIRACETAM (100 MG/ML) 5ML CUP GTB (21:08)
[2018-01-30] MEDS: morphine 2 MG INJ IV ×2 (06:09→13:04)
[2018-01-30] MEDS: METOPROLOL 25 MG TAB PO ×2 (09:00→20:29)
[2018-01-30] MEDS: LEVETIRACETAM (100 MG/ML) 5ML CUP GTB ×2 (10:14→20:29)
[2018-01-30] MEDS: POLYETHYLENE GLYCOL 17 GM PACKET PO (10:14)
[2018-01-30] MEDS: ACETAMINOPHEN 325 MG TAB PO ×2 (12:46→20:36)
[2018-01-30] MEDS: ATORVASTATIN 40 MG TAB PO (20:28)
[2018-01-30] MEDS: BISACODYL 10 MG SUPP PR (20:29)
[2018-01-31 05:43] LABS: ADD MAN DIFF? NO
[2018-01-31 05:46] LABS: BASOPHILS % 0.2 % (0.0-2.0); EOSINOPHILS # 0.1 10^3/ul (0.0-0.5); EOSINOPHILS % 1.5 % (0.0-7.0); HEMATOCRIT 32.1 % (37.0-47.0); HEMOGLOBIN 10.2 g/dl (12.0-16.0); LYMPHOCYTES # 1.3 10^3/ul (0.8-2.9); MEAN CORPUSCULAR HEMOGLOBIN 30.2 pg (29.0-33.0); MEAN CORPUSCULAR HGB CONC 31.8 g/dl (32.0-37.0); MEAN PLATELET VOLUME 10.2 fl (7.4-10.4); MONOCYTE # 0.7 10^3/ul (0.3-0.9); MONOCYTES % 10.5 % (0.0-11.0); NEUTROPHIL # 4.5 10^3/ul (1.6-7.5); NEUTROPHILS % 67.5 % (39.0-77.0); PLATELET COUNT 250 10^3/UL (140-415); RED BLOOD COUNT 3.38 10^6/ul (4.20-5.40); RED CELL DISTRIBUTION WIDTH 14.3 % (11.5-14.5)
[2018-01-31 05:46] LABS: WHITE BLOOD COUNT 6.6 10^3/ul (4.8-10.8)
[2018-01-31 06:21] LABS: ANION GAP 9 (8-16); BLOOD UREA NITROGEN 14 mg/dl (7-20); CALCIUM 8.5 mg/dl (8.4-10.2); CARBON DIOXIDE 36 mmol/L (21-31); CHLORIDE 102 mmol/L (97-110); CREATININE 0.53 mg/dl (0.44-1.00); GLUCOSE 103 mg/dl (70-220); POTASSIUM 3.9 mmol/L (3.5-5.1); SODIUM 143 mmol/L (135-144)
[2018-01-31] MEDS: METOPROLOL 25 MG TAB PO ×2 (09:00→20:55)
[2018-01-31] MEDS: POLYETHYLENE GLYCOL 17 GM PACKET PO (09:51)
[2018-01-31] MEDS: LEVETIRACETAM (100 MG/ML) 5ML CUP GTB ×2 (09:51→20:55)
[2018-01-31] MEDS: morphine 2 MG INJ IV (16:00)
[2018-01-31] MEDS ORDERED: morphine LIQ (10 MG/5 ML) CUP GTB (17:00)
[2018-01-31] MEDS: ATORVASTATIN 40 MG TAB PO (20:55)
[2018-01-31] MEDS: ACETAMINOPHEN 325 MG TAB PO (20:55)
[2018-02-01] MEDS: METOPROLOL 25 MG TAB PO ×2 (09:00→21:00)
[2018-02-01] MEDS: LEVETIRACETAM (100 MG/ML) 5ML CUP GTB ×2 (09:09→21:42)
[2018-02-01] MEDS: POLYETHYLENE GLYCOL 17 GM PACKET PO (09:10)
[2018-02-01] MEDS: ACETAMINOPHEN 325 MG TAB PO (09:24)
[2018-02-01] MEDS: ATORVASTATIN 40 MG TAB PO (21:37)
[2018-02-02 05:32] LABS: ADD MAN DIFF? NO
[2018-02-02 05:40] LABS: WHITE BLOOD COUNT 5.5 10^3/ul (4.8-10.8)
[2018-02-02 05:40] LABS: BASOPHILS % 0.5 % (0.0-2.0); EOSINOPHILS # 0.1 10^3/ul (0.0-0.5); EOSINOPHILS % 1.1 % (0.0-7.0); HEMATOCRIT 32.8 % (37.0-47.0); HEMOGLOBIN 10.5 g/dl (12.0-16.0); LYMPHOCYTES # 1.1 10^3/ul (0.8-2.9); LYMPHOCYTES % 20.3 % (15.0-51.0); MEAN CORPUSCULAR HEMOGLOBIN 30.3 pg (29.0-33.0); MEAN CORPUSCULAR VOLUME 94.5 fl (82.0-101.0); MEAN PLATELET VOLUME 10.3 fl (7.4-10.4); MONOCYTE # 0.6 10^3/ul (0.3-0.9); MONOCYTES % 10.3 % (0.0-11.0); NEUTROPHIL # 3.7 10^3/ul (1.6-7.5); NEUTROPHILS % 67.3 % (39.0-77.0); PLATELET COUNT 258 10^3/UL (140-415); RED BLOOD COUNT 3.47 10^6/ul (4.20-5.40); RED CELL DISTRIBUTION WIDTH 13.7 % (11.5-14.5)
[2018-02-02 06:10] LABS: ANION GAP 11 (8-16); BLOOD UREA NITROGEN 15 mg/dl (7-20); CALCIUM 9.1 mg/dl (8.4-10.2); CARBON DIOXIDE 30 mmol/L (21-31); CHLORIDE 105 mmol/L (97-110); CREATININE 0.49 mg/dl (0.44-1.00); GLUCOSE 95 mg/dl (70-220); POTASSIUM 4.3 mmol/L (3.5-5.1); SODIUM 142 mmol/L (135-144)
[2018-02-02] MEDS: METOPROLOL 25 MG TAB PO ×2 (09:00→20:18)
[2018-02-02] MEDS: POLYETHYLENE GLYCOL 17 GM PACKET PO (09:00)
[2018-02-02] MEDS: LEVETIRACETAM (100 MG/ML) 5ML CUP GTB ×2 (10:01→20:18)
[2018-02-02] MEDS: ATORVASTATIN 40 MG TAB PO (20:18)
[2018-02-03] MEDS: LEVETIRACETAM (100 MG/ML) 5ML CUP GTB ×2 (10:02→21:25)
[2018-02-03] MEDS: POLYETHYLENE GLYCOL 17 GM PACKET PO (10:03)
[2018-02-03] MEDS: METOPROLOL 25 MG TAB PO ×2 (10:04→21:26)
[2018-02-03] MEDS: NYSTATIN 30 GM POWDER BTL TOP (21:25)
[2018-02-03] MEDS: ACETAMINOPHEN 325 MG TAB PO (21:25)
[2018-02-03] MEDS: ATORVASTATIN 40 MG TAB PO (21:25)
[2018-02-04] MEDS: POLYETHYLENE GLYCOL 17 GM PACKET PO (08:53)
[2018-02-04] MEDS: LEVETIRACETAM (100 MG/ML) 5ML CUP GTB ×2 (08:53→20:57)
[2018-02-04] MEDS: METOPROLOL 25 MG TAB PO ×2 (08:54→20:58)
[2018-02-04] MEDS: NYSTATIN 30 GM POWDER BTL TOP ×2 (08:55→20:58)
[2018-02-04] MEDS: ATORVASTATIN 40 MG TAB PO (20:58)
[2018-02-05 05:56] LABS: ADD MAN DIFF? NO
[2018-02-05 05:58] LABS: BASOPHILS % 0.4 % (0.0-2.0); EOSINOPHILS # 0.1 10^3/ul (0.0-0.5); EOSINOPHILS % 1.8 % (0.0-7.0); HEMATOCRIT 33.7 % (37.0-47.0); LYMPHOCYTES # 1.8 10^3/ul (0.8-2.9); LYMPHOCYTES % 24.6 % (15.0-51.0); MEAN CORPUSCULAR HEMOGLOBIN 30.3 pg (29.0-33.0); MEAN CORPUSCULAR HGB CONC 32.6 g/dl (32.0-37.0); MEAN CORPUSCULAR VOLUME 92.8 fl (82.0-101.0); MEAN PLATELET VOLUME 9.9 fl (7.4-10.4); MONOCYTE # 0.6 10^3/ul (0.3-0.9); NEUTROPHIL # 4.8 10^3/ul (1.6-7.5); NEUTROPHILS % 64.8 % (39.0-77.0); PLATELET COUNT 245 10^3/UL (140-415); RED BLOOD COUNT 3.63 10^6/ul (4.20-5.40); RED CELL DISTRIBUTION WIDTH 13.7 % (11.5-14.5)
[2018-02-05 05:58] LABS: WHITE BLOOD COUNT 7.4 10^3/ul (4.8-10.8)
[2018-02-05 06:36] LABS: ANION GAP 10 (8-16); BLOOD UREA NITROGEN 21 mg/dl (7-20); CARBON DIOXIDE 31 mmol/L (21-31); CHLORIDE 105 mmol/L (97-110); CREATININE 0.51 mg/dl (0.44-1.00); GLUCOSE 99 mg/dl (70-220); POTASSIUM 4.3 mmol/L (3.5-5.1); SODIUM 142 mmol/L (135-144)
[2018-02-05 06:36] LABS: PHOSPHORUS 3.2 mg/dl (2.5-4.9)
[2018-02-05] MEDS: POLYETHYLENE GLYCOL 17 GM PACKET PO (09:00)
[2018-02-05] MEDS: LEVETIRACETAM (100 MG/ML) 5ML CUP GTB ×2 (10:01→21:05)
[2018-02-05] MEDS: NYSTATIN 30 GM POWDER BTL TOP ×2 (10:04→21:07)
[2018-02-05] MEDS: METOPROLOL 25 MG TAB PO ×2 (10:07→21:00)
[2018-02-05] MEDS: ATORVASTATIN 40 MG TAB PO (21:06)
[2018-02-05] MEDS: ACETAMINOPHEN 325 MG TAB PO (22:37)
[2018-02-06] MEDS: POLYETHYLENE GLYCOL 17 GM PACKET PO (09:00)
[2018-02-06] MEDS: LEVETIRACETAM (100 MG/ML) 5ML CUP GTB ×2 (09:22→22:27)
[2018-02-06] MEDS: METOPROLOL 25 MG TAB PO ×2 (09:22→22:21)
[2018-02-06] MEDS: NYSTATIN 30 GM POWDER BTL TOP ×2 (09:23→22:23)
[2018-02-06] MEDS: ACETAMINOPHEN 325 MG TAB PO (18:45)
[2018-02-06] MEDS: ATORVASTATIN 40 MG TAB PO (22:21)
[2018-02-06] MEDS: BALSAM PERU/CASTOR OIL 60 GM TUBE TOP (22:22)
[2018-02-07 06:21] LABS: ADD MAN DIFF? NO
[2018-02-07 06:32] LABS: BASOPHILS % 0.5 % (0.0-2.0); EOSINOPHILS # 0.2 10^3/ul (0.0-0.5); EOSINOPHILS % 2.5 % (0.0-7.0); HEMATOCRIT 33.1 % (37.0-47.0); HEMOGLOBIN 10.6 g/dl (12.0-16.0); LYMPHOCYTES # 1.6 10^3/ul (0.8-2.9); LYMPHOCYTES % 24.9 % (15.0-51.0); MEAN CORPUSCULAR HEMOGLOBIN 29.9 pg (29.0-33.0); MEAN CORPUSCULAR VOLUME 93.2 fl (82.0-101.0); MEAN PLATELET VOLUME 9.8 fl (7.4-10.4); MONOCYTE # 0.6 10^3/ul (0.3-0.9); MONOCYTES % 8.7 % (0.0-11.0); NEUTROPHILS % 62.9 % (39.0-77.0); PLATELET COUNT 215 10^3/UL (140-415); RED BLOOD COUNT 3.55 10^6/ul (4.20-5.40)
[2018-02-07 06:32] LABS: WHITE BLOOD COUNT 6.3 10^3/ul (4.8-10.8)
[2018-02-07 06:55] LABS: ANION GAP 12 (8-16); BLOOD UREA NITROGEN 21 mg/dl (7-20); CALCIUM 9.3 mg/dl (8.4-10.2); CARBON DIOXIDE 31 mmol/L (21-31); CHLORIDE 106 mmol/L (97-110); CREATININE 0.52 mg/dl (0.44-1.00); GLUCOSE 91 mg/dl (70-220); POTASSIUM 4.4 mmol/L (3.5-5.1); SODIUM 145 mmol/L (135-144)
[2018-02-07] MEDS: POLYETHYLENE GLYCOL 17 GM PACKET PO (10:10)
[2018-02-07] MEDS: LEVETIRACETAM (100 MG/ML) 5ML CUP GTB (10:10)
[2018-02-07] MEDS: METOPROLOL 25 MG TAB PO (10:11)
[2018-02-07] MEDS: NYSTATIN 30 GM POWDER BTL TOP (10:12)
[2018-02-07] MEDS: BALSAM PERU/CASTOR OIL 60 GM TUBE TOP (10:12)
[2018-02-07] MEDS: ACETAMINOPHEN 325 MG TAB PO (18:42)
== END 2018-02-07 19:15 | DRG 82 ==
LOC: PP2 01-21 19:01 → E/R 14:52 → ICU 17:36 → MS4 01-07 22:29
PROVIDERS: Internal Medicine
PROC: 0DH63UZ Insertion of Feeding Device into Stomach, Percutaneous Approach (ICD-10-PCS; principal; 2018-01-26 18:00)
DX: S06.5X9A Traumatic subdural hemorrhage with loss of consciousness of unspecified duration, initial encounter (principal); G93.40 Encephalopathy, unspecified; I63.232 Cerebral infarction due to unspecified occlusion or stenosis of left carotid arteries; G81.94 Hemiplegia, unspecified affecting left nondominant side; R13.10 Dysphagia, unspecified; E87.1 Hypo-osmolality and hyponatremia; E44.1 Mild protein-calorie malnutrition; W19.XXXA Unspecified fall, initial encounter; D64.9 Anemia, unspecified; I10 Essential (primary) hypertension; K59.00 Constipation, unspecified; R62.7 Adult failure to thrive; R73.03 Prediabetes; Z87.440 Personal history of urinary (tract) infections; Z68.27 Body mass index [BMI] 27.0-27.9, adult
CPT/HCPCS: 36415; 70450; 70498; 70551; 71045; 72125; 74018; 74177; 80048; 80053; 80061; 81001; 82962; 83036; 83540; 83605; 83735; 84100; 84484; 85025; 85610; 85730; 87040; 87045; 87086; 92526; 92610; 93005; 93306; 93880; 95819; 96365; 96375; 96376; 97110; 97116; 97163; 97530; 99291-25

== ENCOUNTER 2018-04-21 11:34 | Inpatient (IN) | payer MEDICAID ==
[2018-04-21] MEDS ORDERED: VANCOMYCIN 1 GM (PMX) 250 ML IVPB (11:50)
[2018-04-21] MEDS: IPRATROPIUM (NEB) 0.5 MG/2.5 ML AMP INH (12:04)
[2018-04-21] MEDS: ALBUTEROL 0.083% (NEB) 2.5 MG/3 ML AMP INH (12:04)
[2018-04-21 12:25] LABS: ADD MAN DIFF? NO
[2018-04-21 12:29] LABS: WHITE BLOOD COUNT 9.4 10^3/ul (4.8-10.8)
[2018-04-21 12:29] LABS: BASOPHIL # 0.1 10^3/ul (0.0-0.1); BASOPHILS % 0.7 % (0.0-2.0); EOSINOPHILS # 0.2 10^3/ul (0.0-0.5); EOSINOPHILS % 1.9 % (0.0-7.0); HEMATOCRIT 39.6 % (37.0-47.0); HEMOGLOBIN 12.7 g/dl (12.0-16.0); LYMPHOCYTES # 1.8 10^3/ul (0.8-2.9); LYMPHOCYTES % 18.7 % (15.0-51.0); MEAN CORPUSCULAR HEMOGLOBIN 29.7 pg (29.0-33.0); MEAN CORPUSCULAR HGB CONC 32.1 g/dl (32.0-37.0); MEAN CORPUSCULAR VOLUME 92.7 fl (82.0-101.0); MEAN PLATELET VOLUME 9.2 fl (7.4-10.4); MONOCYTE # 0.8 10^3/ul (0.3-0.9); MONOCYTES % 8.3 % (0.0-11.0); NEUTROPHIL # 6.6 10^3/ul (1.6-7.5); PLATELET COUNT 330 10^3/UL (140-415); RED BLOOD COUNT 4.27 10^6/ul (4.20-5.40); RED CELL DISTRIBUTION WIDTH 13.2 % (11.5-14.5)
[2018-04-21] MEDS: CEFEPIME 1GM/50 ML (PMX) 50 ML IVPB (12:34)
[2018-04-21] MEDS: SOD CHLORIDE 0.9% 1,000 ML IV (12:34)
[2018-04-21 13:04] LABS: LACTIC ACID 1.3 mmol/L (0.5-2.0)
[2018-04-21 13:13] LABS: ANION GAP 16 (8-16); BLOOD UREA NITROGEN 12 mg/dl (7-20); CALCIUM 9.4 mg/dl (8.4-10.2); CARBON DIOXIDE 25 mmol/L (21-31); CHLORIDE 104 mmol/L (97-110); CREATININE 0.65 mg/dl (0.44-1.00); GLUCOSE 119 mg/dl (70-220); POTASSIUM 4.3 mmol/L (3.5-5.1); SODIUM 141 mmol/L (135-144)
[2018-04-21 13:40] LABS: TROPONIN-I < 0.012 ng/ml (0.000-0.120)
[2018-04-21] MEDS ORDERED: ACETAMINOPHEN 325 MG TAB PO (14:00)
[2018-04-21] MEDS ORDERED: ONDANSETRON 4 MG INJ IV ×2 (14:00→15:00)
[2018-04-21] MEDS ORDERED: ALBUTEROL HFA 8 GM INHALER INH (14:30)
[2018-04-21] MEDS ORDERED: BISACODYL 10 MG SUPP PR (15:00)
[2018-04-21] MEDS ORDERED: HYDROCODONE/APAP (5/325) TAB PO ×2 (15:00)
[2018-04-21] MEDS ORDERED: morphine 2 MG INJ IV (15:00)
[2018-04-21] MEDS ORDERED: NACL 0.9% 3 ML SYG IV (15:00)
[2018-04-21] MEDS ORDERED: ACETAMINOPHEN 650 MG SUPP PR (15:00)
[2018-04-21] MEDS ORDERED: DOCUSATE SODIUM 100 MG CAP PO (15:00)
[2018-04-21] MEDS ORDERED: MAGNESIUM HYDROXIDE 30ML CUP PO (15:00)
[2018-04-21] MEDS: CLINDAMYCIN 900 MG/D5W (PMX) 50 ML IVPB (15:02)
[2018-04-21 16:42] LABS: LACTIC ACID 0.9 mmol/L (0.5-2.0)
[2018-04-21] MEDS: DEXTROSE 5%-0.45% NACL 1,000 ML IV (17:41)
[2018-04-21 21:00] LABS: LACTIC ACID 0.9 mmol/L (0.5-2.0)
[2018-04-21] MEDS ORDERED: CEFEPIME 2GM/50 ML (PMX) 50 ML IVPB (21:00)
[2018-04-21] MEDS ORDERED: LEVETIRACETAM 500 MG TAB PO (21:00)
[2018-04-21] MEDS: CEFEPIME 2GM/50 ML (PMX) 50 ML IVPB (21:18)
[2018-04-21] MEDS: GUAIFENESIN LA 600 MG TABSR PO (21:28)
[2018-04-21] MEDS: MONTELUKAST 10 MG TAB PO (21:28)
[2018-04-21] MEDS: LEVETIRACETAM (100 MG/ML) 5ML CUP PO (21:28)
[2018-04-21] MEDS: GABAPENTIN 100 MG CAP PO (21:28)
[2018-04-21] MEDS: METHYLPREDNISOLONE 125 MG INJ IV (21:34)
[2018-04-22] MEDS: ALBUTEROL/IPRATROPIUM (NEB) 3 ML AMP HHN ×6 (01:17→20:35)
[2018-04-22] MEDS: PANTOPRAZOLE 40 MG INJ IV (05:38)
[2018-04-22 06:27] LABS: HEMATOCRIT 39.7 % (37.0-47.0); HEMOGLOBIN 12.5 g/dl (12.0-16.0); MEAN CORPUSCULAR HEMOGLOBIN 29.6 pg (29.0-33.0); MEAN CORPUSCULAR HGB CONC 31.5 g/dl (32.0-37.0); MEAN CORPUSCULAR VOLUME 93.9 fl (82.0-101.0); MEAN PLATELET VOLUME 9.7 fl (7.4-10.4); PLATELET COUNT 311 10^3/UL (140-415); RED BLOOD COUNT 4.23 10^6/ul (4.20-5.40); RED CELL DISTRIBUTION WIDTH 13.3 % (11.5-14.5)
[2018-04-22 06:27] LABS: WHITE BLOOD COUNT 6.4 10^3/ul (4.8-10.8)
[2018-04-22 06:54] LABS: ADD MAN DIFF? YES; POSITIVE DIFF @See below
[2018-04-22 07:07] LABS: ALANINE AMINOTRANSFERASE 31 IU/L (13-69); ALBUMIN 3.7 g/dl (3.3-4.9); ALBUMIN/GLOBULIN RATIO 0.88; ALKALINE PHOSPHATASE 141 IU/L (42-121); ANION GAP 15 (8-16); ASPARTATE AMINO TRANSFERASE 29 IU/L (15-46); BILIRUBIN,INDIRECT 0.2 mg/dl (0-1.1); BILIRUBIN,TOTAL 0.2 mg/dl (0.2-1.3); BLOOD UREA NITROGEN 10 mg/dl (7-20); CALCIUM 9.5 mg/dl (8.4-10.2); CARBON DIOXIDE 22 mmol/L (21-31); CHLORIDE 110 mmol/L (97-110); CHOL/HDL RATIO 3.3 RATIO; CHOLESTEROL 143 mg/dl (100-200); CREATININE 0.58 mg/dl (0.44-1.00); GLUCOSE 192 mg/dl (70-220); HDL CHOLESTEROL 43 mg/dl (33-92); LDL CHOLESTEROL,CALCULATED 86 mg/dl; MAGNESIUM 2.3 mg/dl (1.7-2.5); PHOSPHORUS 3.8 mg/dl (2.5-4.9); POTASSIUM 3.9 mmol/L (3.5-5.1); SODIUM 143 mmol/L (135-144); TOTAL PROTEIN 7.9 g/dl (6.1-8.1); TRIGLYCERIDES 68 mg/dl (0-149)
[2018-04-22 07:14] LABS: FREE THYROXINE INDEX (Calc) 3.17 ug/ml (0.65-3.89); T3 UPTAKE 40.1 % (23.5-40.5); T4 (THYROXINE) 7.9 ug/dl (5.5-11.0)
[2018-04-22 07:27] LABS: THYROID STIMULATING HORMONE 0.372 MIU/L (0.465-4.680)
[2018-04-22 08:38] LABS: HEMOGLOBIN A1C 5.8 % (0-5.9)
[2018-04-22] MEDS: LEVETIRACETAM (100 MG/ML) 5ML CUP PO ×2 (08:40→20:29)
[2018-04-22] MEDS: ASPIRIN 81 MG TAB PO (08:40)
[2018-04-22] MEDS: GABAPENTIN 100 MG CAP PO ×2 (08:40→20:29)
[2018-04-22] MEDS: GUAIFENESIN LA 600 MG TABSR PO ×2 (08:40→20:29)
[2018-04-22] MEDS: FLUTICASONE 0.05% 16 GM NAS SPRAY NASAL (08:44)
[2018-04-22] MEDS: CEFEPIME 2GM/50 ML (PMX) 50 ML IVPB ×2 (08:47→20:29)
[2018-04-22 10:54] LABS: BAND NEUTROPHILS #M 0.1 10^3/ul (0.0-0.6); BAND NEUTROPHILS % (M) 2 % (0-4); LYMPHOCYTES % (M) 16 % (15-51); PLATELET ESTIMATE NORMAL; POIKILOCYTOSIS 1+ (0-0); POLYCHROMASIA 2+ (0-0); SEG NEUT #M 5.3 10^3/ul (1.6-7.5); SEGMENTED NEUTROPHILS (M) % 82 % (39-77); SMUDGE%M 7 % (0-0)
[2018-04-22] MEDS: DEXTROSE 5%-0.45% NACL 1,000 ML IV (15:50)
[2018-04-22] MEDS: MONTELUKAST 10 MG TAB PO (20:29)
[2018-04-23] MEDS: ALBUTEROL/IPRATROPIUM (NEB) 3 ML AMP HHN ×6 (01:31→20:57)
[2018-04-23] MEDS: PANTOPRAZOLE 40 MG INJ IV (05:20)
[2018-04-23 06:20] LABS: ADD MAN DIFF? NO
[2018-04-23 06:30] LABS: BASOPHILS % 0.3 % (0.0-2.0); EOSINOPHILS % 0.1 % (0.0-7.0); HEMATOCRIT 33.5 % (37.0-47.0); HEMOGLOBIN 10.7 g/dl (12.0-16.0); LYMPHOCYTES # 2.1 10^3/ul (0.8-2.9); LYMPHOCYTES % 23.4 % (15.0-51.0); MEAN CORPUSCULAR HEMOGLOBIN 29.8 pg (29.0-33.0); MEAN CORPUSCULAR HGB CONC 31.9 g/dl (32.0-37.0); MEAN CORPUSCULAR VOLUME 93.3 fl (82.0-101.0); MEAN PLATELET VOLUME 9.7 fl (7.4-10.4); MONOCYTE # 0.6 10^3/ul (0.3-0.9); MONOCYTES % 6.5 % (0.0-11.0); NEUTROPHIL # 6.1 10^3/ul (1.6-7.5); PLATELET COUNT 302 10^3/UL (140-415); RED BLOOD COUNT 3.59 10^6/ul (4.20-5.40); RED CELL DISTRIBUTION WIDTH 13.4 % (11.5-14.5)
[2018-04-23 06:30] LABS: WHITE BLOOD COUNT 8.9 10^3/ul (4.8-10.8)
[2018-04-23 07:28] LABS: ANION GAP 10 (8-16); BLOOD UREA NITROGEN 6 mg/dl (7-20); CALCIUM 8.9 mg/dl (8.4-10.2); CARBON DIOXIDE 25 mmol/L (21-31); CHLORIDE 113 mmol/L (97-110); CREATININE 0.57 mg/dl (0.44-1.00); GLUCOSE 119 mg/dl (70-220); POTASSIUM 3.4 mmol/L (3.5-5.1); SODIUM 145 mmol/L (135-144)
[2018-04-23] MEDS: GUAIFENESIN LA 600 MG TABSR PO ×2 (08:43→21:08)
[2018-04-23] MEDS: GABAPENTIN 100 MG CAP PO ×2 (08:43→21:08)
[2018-04-23] MEDS: LEVETIRACETAM (100 MG/ML) 5ML CUP PO ×2 (08:43→21:07)
[2018-04-23] MEDS: ASPIRIN 81 MG TAB PO (08:43)
[2018-04-23] MEDS: CEFEPIME 2GM/50 ML (PMX) 50 ML IVPB ×2 (08:46→21:07)
[2018-04-23] MEDS: FLUTICASONE 0.05% 16 GM NAS SPRAY NASAL (08:47)
[2018-04-23] MEDS: DEXTROSE 5%-0.45% NACL 1,000 ML IV (09:36)
[2018-04-23] MEDS: POTASSIUM CHLORIDE (SR) 20 MEQ TAB PO (10:08)
[2018-04-23] MEDS ORDERED: BARIUM SULFATE 135 ML (E-Z HD) PO (10:37)
[2018-04-23] MEDS ORDERED: morphine LIQ (10 MG/5 ML) CUP PO (13:00)
[2018-04-23] MEDS: MONTELUKAST 10 MG TAB PO (21:08)
[2018-04-24] MEDS: ALBUTEROL/IPRATROPIUM (NEB) 3 ML AMP HHN ×6 (00:27→20:06)
[2018-04-24] MEDS: DEXTROSE 5%-0.45% NACL 1,000 ML IV (05:45)
[2018-04-24] MEDS: PANTOPRAZOLE 40 MG INJ IV (05:45)
[2018-04-24 06:00] LABS: ADD MAN DIFF? NO
[2018-04-24 06:08] LABS: WHITE BLOOD COUNT 7.2 10^3/ul (4.8-10.8)
[2018-04-24 06:08] LABS: BASOPHIL # 0.1 10^3/ul (0.0-0.1); EOSINOPHILS # 0.3 10^3/ul (0.0-0.5); EOSINOPHILS % 4.7 % (0.0-7.0); HEMATOCRIT 35.4 % (37.0-47.0); HEMOGLOBIN 11.3 g/dl (12.0-16.0); LYMPHOCYTES % 27.6 % (15.0-51.0); MEAN CORPUSCULAR HEMOGLOBIN 29.7 pg (29.0-33.0); MEAN CORPUSCULAR HGB CONC 31.9 g/dl (32.0-37.0); MEAN CORPUSCULAR VOLUME 92.9 fl (82.0-101.0); MEAN PLATELET VOLUME 9.6 fl (7.4-10.4); MONOCYTE # 0.5 10^3/ul (0.3-0.9); MONOCYTES % 7.2 % (0.0-11.0); NEUTROPHIL # 4.3 10^3/ul (1.6-7.5); NEUTROPHILS % 58.9 % (39.0-77.0); PLATELET COUNT 339 10^3/UL (140-415); RED BLOOD COUNT 3.81 10^6/ul (4.20-5.40); RED CELL DISTRIBUTION WIDTH 13.7 % (11.5-14.5)
[2018-04-24 07:45] LABS: ANION GAP 14 (8-16); BLOOD UREA NITROGEN 8 mg/dl (7-20); CALCIUM 8.8 mg/dl (8.4-10.2); CARBON DIOXIDE 21 mmol/L (21-31); CHLORIDE 112 mmol/L (97-110); CREATININE 0.58 mg/dl (0.44-1.00); GLUCOSE 94 mg/dl (70-220); POTASSIUM 4.2 mmol/L (3.5-5.1); SODIUM 143 mmol/L (135-144)
[2018-04-24] MEDS: CEFEPIME 2GM/50 ML (PMX) 50 ML IVPB (09:49)
[2018-04-24] MEDS: LEVETIRACETAM (100 MG/ML) 5ML CUP PO ×2 (09:49→20:29)
[2018-04-24] MEDS: GUAIFENESIN LA 600 MG TABSR PO ×2 (09:49→20:29)
[2018-04-24] MEDS: ASPIRIN 81 MG TAB PO (09:49)
[2018-04-24] MEDS: GABAPENTIN 100 MG CAP PO ×2 (09:49→20:29)
[2018-04-24] MEDS: FLUTICASONE 0.05% 16 GM NAS SPRAY NASAL (09:49)
[2018-04-24] MEDS: LEVOFLOXACIN 500 MG TAB PO (15:19)
[2018-04-24] MEDS: MONTELUKAST 10 MG TAB PO (20:29)
[2018-04-25] MEDS: GUAIFENESIN/DM 5ML CUP PO (00:57)
[2018-04-25] MEDS: ALBUTEROL/IPRATROPIUM (NEB) 3 ML AMP HHN ×6 (01:00→20:05)
[2018-04-25] MEDS: DEXTROSE 5%-0.45% NACL 1,000 ML IV ×3 (01:30→21:30)
[2018-04-25] MEDS: PANTOPRAZOLE 40 MG INJ IV (05:14)
[2018-04-25 05:54] LABS: ADD MAN DIFF? NO
[2018-04-25 05:58] LABS: BASOPHIL # 0.1 10^3/ul (0.0-0.1); BASOPHILS % 0.7 % (0.0-2.0); EOSINOPHILS # 0.4 10^3/ul (0.0-0.5); EOSINOPHILS % 5.9 % (0.0-7.0); HEMATOCRIT 36.9 % (37.0-47.0); HEMOGLOBIN 11.9 g/dl (12.0-16.0); LYMPHOCYTES # 2.2 10^3/ul (0.8-2.9); LYMPHOCYTES % 32.5 % (15.0-51.0); MEAN CORPUSCULAR HEMOGLOBIN 29.8 pg (29.0-33.0); MEAN CORPUSCULAR HGB CONC 32.2 g/dl (32.0-37.0); MEAN CORPUSCULAR VOLUME 92.3 fl (82.0-101.0); MEAN PLATELET VOLUME 9.1 fl (7.4-10.4); MONOCYTE # 0.5 10^3/ul (0.3-0.9); MONOCYTES % 7.4 % (0.0-11.0); NEUTROPHIL # 3.6 10^3/ul (1.6-7.5); NEUTROPHILS % 52.8 % (39.0-77.0); PLATELET COUNT 338 10^3/UL (140-415); RED CELL DISTRIBUTION WIDTH 13.4 % (11.5-14.5)
[2018-04-25 05:58] LABS: WHITE BLOOD COUNT 6.8 10^3/ul (4.8-10.8)
[2018-04-25 06:23] LABS: ANION GAP 12 (8-16); BLOOD UREA NITROGEN 6 mg/dl (7-20); CARBON DIOXIDE 26 mmol/L (21-31); CHLORIDE 110 mmol/L (97-110); CREATININE 0.64 mg/dl (0.44-1.00); GLUCOSE 103 mg/dl (70-220); POTASSIUM 4.3 mmol/L (3.5-5.1); SODIUM 144 mmol/L (135-144)
[2018-04-25] MEDS: GABAPENTIN 100 MG CAP PO ×2 (08:52→22:13)
[2018-04-25] MEDS: FLUTICASONE 0.05% 16 GM NAS SPRAY NASAL (08:52)
[2018-04-25] MEDS: LEVOFLOXACIN 500 MG TAB PO (08:52)
[2018-04-25] MEDS: LEVETIRACETAM (100 MG/ML) 5ML CUP PO ×2 (08:52→22:13)
[2018-04-25] MEDS: ASPIRIN 81 MG TAB PO (08:52)
[2018-04-25] MEDS: GUAIFENESIN LA 600 MG TABSR PO ×2 (08:52→22:13)
[2018-04-25] MEDS: MONTELUKAST 10 MG TAB PO (22:13)
[2018-04-26] MEDS: ALBUTEROL/IPRATROPIUM (NEB) 3 ML AMP HHN ×5 (00:12→17:09)
[2018-04-26] MEDS: PANTOPRAZOLE 40 MG INJ IV (05:34)
[2018-04-26 06:12] LABS: ADD MAN DIFF? NO
[2018-04-26 06:28] LABS: BASOPHILS % 0.6 % (0.0-2.0); EOSINOPHILS # 0.4 10^3/ul (0.0-0.5); EOSINOPHILS % 6.3 % (0.0-7.0); HEMATOCRIT 36.8 % (37.0-47.0); HEMOGLOBIN 11.6 g/dl (12.0-16.0); LYMPHOCYTES % 30.2 % (15.0-51.0); MEAN CORPUSCULAR HEMOGLOBIN 29.5 pg (29.0-33.0); MEAN CORPUSCULAR HGB CONC 31.5 g/dl (32.0-37.0); MEAN CORPUSCULAR VOLUME 93.6 fl (82.0-101.0); MEAN PLATELET VOLUME 9.2 fl (7.4-10.4); MONOCYTE # 0.5 10^3/ul (0.3-0.9); MONOCYTES % 7.8 % (0.0-11.0); NEUTROPHIL # 3.5 10^3/ul (1.6-7.5); NEUTROPHILS % 54.3 % (39.0-77.0); PLATELET COUNT 333 10^3/UL (140-415); RED BLOOD COUNT 3.93 10^6/ul (4.20-5.40); RED CELL DISTRIBUTION WIDTH 13.3 % (11.5-14.5)
[2018-04-26 06:28] LABS: WHITE BLOOD COUNT 6.5 10^3/ul (4.8-10.8)
[2018-04-26 06:44] LABS: ANION GAP 9 (8-16); BLOOD UREA NITROGEN 6 mg/dl (7-20); CALCIUM 9.1 mg/dl (8.4-10.2); CARBON DIOXIDE 29 mmol/L (21-31); CHLORIDE 110 mmol/L (97-110); CREATININE 0.64 mg/dl (0.44-1.00); GLUCOSE 105 mg/dl (70-220); POTASSIUM 4.1 mmol/L (3.5-5.1); SODIUM 144 mmol/L (135-144)
[2018-04-26] MEDS: LEVOFLOXACIN 500 MG TAB PO (08:51)
[2018-04-26] MEDS: ASPIRIN 81 MG TAB PO (08:51)
[2018-04-26] MEDS: GABAPENTIN 100 MG CAP PO (08:51)
[2018-04-26] MEDS: GUAIFENESIN LA 600 MG TABSR PO (08:51)
[2018-04-26] MEDS: LEVETIRACETAM (100 MG/ML) 5ML CUP PO (08:51)
[2018-04-26] MEDS: FLUTICASONE 0.05% 16 GM NAS SPRAY NASAL (08:52)
[2018-04-26] MEDS: DEXTROSE 5%-0.45% NACL 1,000 ML IV ×2 (10:36→17:30)
[2018-04-26] MEDS: ACETAMINOPHEN 325 MG TAB PO (18:07)
== END 2018-04-26 18:40 | disposition home or self-care (01) | DRG 195 ==
LOC: E/R 11:34 → MS2 13:36
DX: J18.9 Pneumonia, unspecified organism (principal); R13.10 Dysphagia, unspecified; I65.22 Occlusion and stenosis of left carotid artery; R73.03 Prediabetes; I10 Essential (primary) hypertension; Z79.82 Long term (current) use of aspirin; Z86.73 Personal history of transient ischemic attack (TIA), and cerebral infarction without residual deficits
CPT/HCPCS: 36415; 71045; 74230; 80048; 80053; 80061; 83036; 83605; 83735; 84100; 84436; 84443; 84479; 84484; 85025; 87040; 92526; 92610; 92611; 94640; 94664; 96374; 96375; 97110; 97116; 97162; 97167; 97530; 97535; 99285-25

== ENCOUNTER 2018-11-09 15:20 | Emergency (ER) | payer OTHER, MEDICAID ==
[2018-11-09 20:36] LABS: WHITE BLOOD COUNT 9.1 10^3/ul (4.8-10.8)
[2018-11-09 20:36] LABS: ADD MAN DIFF? NO; BASOPHIL # 0.1 10^3/ul (0.0-0.1); BASOPHILS % 0.8 % (0.0-2.0); EOSINOPHILS # 0.2 10^3/ul (0.0-0.5); EOSINOPHILS % 2.7 % (0.0-7.0); HEMOGLOBIN 12.6 g/dl (12.0-16.0); LYMPHOCYTES # 2.7 10^3/ul (0.8-2.9); LYMPHOCYTES % 29.7 % (15.0-51.0); MEAN CORPUSCULAR HEMOGLOBIN 29.9 pg (29.0-33.0); MEAN CORPUSCULAR HGB CONC 32.3 g/dl (32.0-37.0); MEAN CORPUSCULAR VOLUME 92.6 fl (82.0-101.0); MEAN PLATELET VOLUME 9.2 fl (7.4-10.4); MONOCYTE # 0.7 10^3/ul (0.3-0.9); MONOCYTES % 8.1 % (0.0-11.0); NEUTROPHIL # 5.3 10^3/ul (1.6-7.5); NEUTROPHILS % 58.5 % (39.0-77.0); PLATELET COUNT 267 10^3/UL (140-415); RED BLOOD COUNT 4.21 10^6/ul (4.20-5.40); RED CELL DISTRIBUTION WIDTH 13.2 % (11.5-14.5)
[2018-11-09 20:54] LABS: ANION GAP 10 (5-13); BLOOD UREA NITROGEN 23 mg/dl (7-20); CALCIUM 9.5 mg/dl (8.4-10.2); CARBON DIOXIDE 24 mmol/L (21-31); CHLORIDE 105 mmol/L (97-110); CREATININE 0.65 mg/dl (0.44-1.00); GLUCOSE 101 mg/dl (70-220); POTASSIUM 4.3 mmol/L (3.5-5.1); SODIUM 139 mmol/L (135-144)
[2018-11-09 21:06] LABS: B-TYPE NATRIURETIC PEPTIDE 231 PG/ML (0-450); TROPONIN-I 0.013 ng/ml (0.000-0.120)
== END 2018-11-09 23:17 | disposition home or self-care (01) ==
LOC: E/R 15:20
DX: J06.9 Acute upper respiratory infection, unspecified (principal); I10 Essential (primary) hypertension; R40.2142 Coma scale, eyes open, spontaneous, at arrival to emergency department; R40.2252 Coma scale, best verbal response, oriented, at arrival to emergency department; R40.2362 Coma scale, best motor response, obeys commands, at arrival to emergency department; Z79.82 Long term (current) use of aspirin
CPT/HCPCS: 36415; 71045; 80048; 83605; 83880; 84484; 85025; 99284-25